=== PATIENT | female | born 1985 | race Caucasian/White ===

== ENCOUNTER 2017-05-22 20:33 | Emergency (ER) | payer SELFPAY ==
[2017-05-22 21:45] VITALS: BP 155/83
[2017-05-22 22:56] LABS: Bacteria,Urine 2+ /HPF (Negative); Bilirubin,Urine NEG (Negative); Blood,Urine SM (Negative); Color,Urine Yellow (Yellow); Mucus,Urine 1+ /HPF; Nitrite,Urine NEG (Negative); Urobilinogen,Urine < 2.0 mg/dL (<2.0)
[2017-05-22 23:15] LABS: Basophils % (Auto) 0.1 % (0.0-1.8); Eosinophils # (Auto) 0.3 K/mm3 (0.0-0.4); Eosinophils % (Auto) 2.3 % (0.0-4.3); Hematocrit 34.4 % (30.3-42.9); Hemoglobin 11.3 gm/dl (10.1-14.3); Lymphocytes # (Auto) 2.5 K/mm3 (1.2-5.4); Lymphocytes % (Auto) 21.6 % (13.4-35.0); Mean Corpuscular HGB Conc 33 % (30-34); Mean Corpuscular Hemoglobin 29 pg (28-32); Mean Corpuscular Volume 88 fl (79-97); Monocytes # (Auto) 0.6 K/mm3 (0.0-0.8); Monocytes % (Auto) 5.3 % (0.0-7.3); Platelet Count 270 K/mm3 (140-440); Red Cell Distribution Width 13.8 % (13.2-15.2)
--- NOTE | 2017-05-23 00:08 | Ultrasound Report ---
FINAL REPORT PROCEDURE: US OB > = 14 WEEKS FETUS TECHNIQUE: Real-time limited sonographic examination was performed for evaluation of size, position, heartbeat, fluid volume for each fetus with image documentation (1 or more fetuses). CPT 66106 HISTORY: vaginal bleeding COMPARISON: No prior studies are available for comparison. FINDINGS: MATERNAL Uterus: Within normal limits . Cervix length: 3.5 cm. Internal Os: Closed . FETUS IUP: Single living intrauterine . Position: Cephalic. Placental position: Anterior, without previa . Amniotic fluid volume: Normal . Heart rate and rhythm: 154 BPM, Regular . anatomic survey: Not performed. MEASUREMENTS BPD: 4.1 centimeters correspond 18 weeks and 3 days. HC: 14.9 centimeters corresponding to 18 weeks. AC: 12.7 centimeters corresponding to 18 weeks and 2 days. FL: 2.6 centimeters correspond 18 weeks and 1 day. Mean Gestational Age (composite criteria): 18 weeks and 2 days. Ratio biometry: Normal . Estimated Weight: 228 grams. Interval growth: Appropriate . Estimated Due Date (earliest scan): 10/21/2017. IMPRESSION: 1. Single living intrauterine gestation at approximately 18 weeks and 2 days. 2. EDC by US 10/21/2017.
== END 2017-05-23 01:30 | disposition left against medical advice (07) ==
LOC: ED 20:33
DX: N93.9 Abnormal uterine and vaginal bleeding, unspecified (principal); R10.2 Pelvic and perineal pain; Z53.21 Procedure and treatment not carried out due to patient leaving prior to being seen by health care provider
CPT/HCPCS: 36415; 76805; 81001; 84702; 85025; 86850; 86900; 86901